=== PATIENT | female | born 1990 | race Hispanic/Latino ===

== ENCOUNTER → 2017-12-02 | Day surgery (SDC) | payer OTHER ==
[~2017-12-02] MED LIST: ACETAMINOPHEN 1000 MG/100 ML IV ONE; BUPIVACAINE 0.25% 30ML SDV INJ ONE; BUPROPION XL150 MG PO; CIPRO500 MG PO; DEXAMETHASONE SOD PHOS INJ 4 MG/ML VIAL ONE; FENTANYL CITRATE/PF 100MCG/2 ML INJ ONE; FLUOXETINE HCL10 MG PO; GLYCOPYRROLATE INJ 1MG/ 5 ML SYR ONE; LABETALOL HCL IV 5 MG/ML 20ML MDV ONE; LIDOCAINE HCL 2% LOCAL INJ 5 ML SDV VIAL INJ ONE; MIDAZOLAM HCL 2 MG/2 ML VIAL ONE; NEOSTIGMINE 5 MG/5ML SYR ONE; ONDANSETRON HCL INJ 2 MG/ML VIAL ONE; PROPOFOL IV EMULSION 10 MG/ML 20 ML VIAL ONE; QUETIAPINE FUM100 MG PO; ROCURONIUM BROMIDE 10 MG/ML 5ML VIAL ONE; SEVOFLURANE INHAL SOLN 250 ML PEN BTL ONE
--- OUTSIDE RECORDS SUMMARY | 2017-12-02 05:45 | XMS REPORT | Summary of Care ---
Author Author YOLANDE WILKERSON N.P. Organization Unknown Address Unknown Phone Unavailable Care Team Providers Care Day Light Relief Operator Name Role Phone YOLANDE WILKERSON N.P. Unavailable Unavailable LISET CARL DO Unavailable Unavailable Unavailable Unavailable Functional Status Name Dates Details Functional status health issues are not documented Status: Name Dates Details Cognitive status health issues are not documented Status: Problems Name Dates Details Alcohol use disorder (305.00, F10.99) Status: Active Pelvic cramping (625.9, R10.2) Status: Active Abnormal urine finding (791.9, R82.90) Status: Active Strep pharyngitis (034.0, J02.0) Status: Active Mood disorder (296.90, F39) Status: Active Alcohol dependence (303.90, F10.20) Status: Active Deliberate self-cutting (300.9, Z72.89) Status: Active Cocaine use disorder, moderate, in early remission (305.63, F14.21) Status: Active Borderline personality disorder (301.83, F60.3) Status: Active Bipolar disorder, current episode mixed, moderate (296.62, F31.62) Status: Active Inattention (799.51, R41.840) Status: Active MDD (major depressive disorder), severe (296.23, F32.2) Status: Active Medications Name Dates Details Depo-Provera SINTIA Active Naltrexone HCl - 50 MG Oral Tablet TAKE 1 TABLET ONCE DAILY. * Quantity: 30 Refills: 2 ELLIS-FOSTER N.P., YOLANDE * Start : 04-Apr-2017 Active QUEtiapine Fumarate 50 MG Oral Tablet TAKE 1 TABLET AT BEDTIME * Quantity: 60 Refills: 1 ELLIS-FOSTER N.P., YOLANDE * Start : 25-Aug-2017 Active FLUoxetine HCl - 20 MG Oral Capsule TAKE 2 CAPSULE DAILY * Quantity: 60 Refills: 2 ELLIS-FOSTER N.P., YOLANDE * Start : 02-Sep-2017 Active BuPROPion HCl ER (XL) 150 MG Oral Tablet Extended Release 24 Hour 1 tablet daily * Quantity: 30 Refills: 1 YOLANDE WILKERSON N.P. * Start : 23-Nov-2017 Active Allergies and Adverse Reactions Name Dates Details No Known Drug Allergies (Allergy) Status: Active Past Medical History Name Dates Details History of drug abuse (305.93, Z87.898) Status: Resolved History of suicide attempt (V11.8, Z91.5) Status: Resolved Procedures Procedure Dates Details History of breast augmentation Completed History of liposuction Completed Immunization Name Dates Details Immunizations not documented Family History Name Dates Details No pertinent family history Status: Active Name Dates Details No pertinent family history Status: Active Social History Name Dates Details - Status: Name Dates Details Former smoker Vital Signs Date Test Result Details [id number] BP Systolic 122 mm[Hg] Status: Comments: Location: LUE; Position: Sitting BP Diastolic 83 mm[Hg] Status: Comments: Location: LUE; Position: Sitting Height 62 in Status: Weight 120 lb Status: Body Mass Index Calculated 21.95 kg/m2 Status: Body Surface Area Calculated 1.54 m2 Status: Temperature 97.7 f Status: Comments: Method: Temporal Heart Rate 88 /min Status: Comments: Location: L Brachial Artery; Respiration Rate 16 /min Status: Comments: Quality: Normal [id number]-[id number] BP Systolic 113 mm[Hg] Status: Comments: Location: LUE; Position: Sitting BP Diastolic 75 mm[Hg] Status: Comments: Location: LUE; Position: Sitting Height 62 in Status: Weight 118 lb Status: Body Mass Index Calculated 21.58 kg/m2 Status: Body Surface Area Calculated 1.53 m2 Status: Temperature 98 f Status: Comments: Method: Temporal Heart Rate 86 /min Status: Comments: Location: L Brachial Artery; Respiration Rate 16 /min Status: Comments: Quality: Normal 31-Vnx-[id number]:14 BP Systolic 108 mm[Hg] Status: Comments: Location: LUE; Position: Sitting BP Diastolic 73 mm[Hg] Status: Comments: Location: LUE; Position: Sitting Height 62 in Status: Weight 121 lb Status: Body Mass Index Calculated 22.13 kg/m2 Status: Body Surface Area Calculated 1.54 m2 Status: Temperature 97.4 f Status: Comments: Method: Temporal Heart Rate 79 /min Status: Comments: Location: L Brachial Artery; Respiration Rate 16 /min Status: Comments: Quality: Normal Results Date Description Value Details Results not documented Plan of Care Name Dates Details Planned Observations Planned Goals not documented Interventions Provided Medication Changes* BuPROPion HCl ER (XL) 150 MG Oral Tablet Extended Release 24 Hour - Start Plan* Bipolar- continue with Quetiapine nightly. Return to clinic 1 month; sooner if needed * BPD- continue Fluoxetine, may consider weaning after starting Bupropion * Inattention- start Bupropion Instructions Name Dates Details Instructions not documented Encounters Appointment; MAYNOR MELCHOR M.D. Encounter Diagnosis: Problem not documented On: 04-Apr-2017 11:00 Appointment; MAYNOR MELCHOR M.D. Encounter Diagnosis: Problem not documented On: 04-May-2017 12:00 Appointment; SHAWN ADLER LCSW Encounter Diagnosis: Problem not documented On: 05-May-2017 11:00 Appointment; SHAWN ADLER LCSW Encounter Diagnosis: Problem not documented On: 20-May-2017 11:00 Appointment; YOLANDE WILKERSON NP Encounter Diagnosis: Problem not documented On: 25-Aug-2017 15:30 Appointment; YOLANDE WILKERSON NP Encounter Diagnosis: Problem not documented On: 02-Sep-2017 14:30 Appointment; YOLANDE WILKERSON NP Encounter Diagnosis: Problem not documented On: 23-Sep-2017 14:00 Appointment; YOLANDE WILKERSON NP Encounter Diagnosis: Problem not documented On: 19-Oct-2017 14:00 Appointment; YOLANDE WILKERSON NP Encounter Diagnosis: Problem not documented On: 09-Nov-2017 14:00 Appointment; YOLANDE WILKERSON NP Encounter Diagnosis: Problem not documented On: 18-Nov-2017 15:00 Appointment; YOLANDE WILKERSON NP Encounter Diagnosis: Problem not documented On: 23-Nov-2017 14:00
--- NOTE | 2017-12-02 12:37 | Operative Report ---
DATE OF PROCEDURE: December 02, 2017 PREOPERATIVE DIAGNOSES 1. Chronic adenotonsillitis. 2. Adenotonsillar hypertrophy. 3. Tonsilliths. POSTOPERATIVE DIAGNOSES 1. Chronic adenotonsillitis. 2. Adenotonsillar hypertrophy. 3. Tonsilliths. PROCEDURE: Tonsillectomy and adenoidectomy. SIGNIFICANT FINDINGS: Tonsils are 3+/3+ bilaterally and scarred. Adenoids moderately enlarged. Tonsilliths present. ANESTHESIA: General endotracheal tube anesthesia. SPECIMENS REMOVED: Tonsils (adenoids were coblated). ESTIMATED BLOOD LOSS: Less than 1 mL. COMPLICATIONS: None. INDICATIONS: The patient is a 26-year-old female with 6-year history of frequent throat infections occurring every 2 months. Each infection manifests as enlarged erythematous and exudative tonsils, sore throat, postnasal drip, fever, and enlarged tonsillar lymphadenopathy. She has been refractory to multiple courses of antibiotics. She also suffers from frequent tonsilliths which bother the patient. On examination, the tonsils are 2-3+/2-3+, cryptic and scarred. She is scheduled for tonsillectomy and adenoidectomy for the treatment of chronic adenotonsillitis, adenotonsillar hypertrophy and tonsilliths. Risks and complications of the procedures were thoroughly discussed with the patient and her mother, and they include infection, bleeding, scarring, failure to improve, need for additional operations, persistent infection, persistent tonsilliths, damage to teeth, gums, tongue, and lips, voice changes, chronic pain, numbness of the tongue and inability to taste, scarring of the pharynx resulting in permanent worse nasal obstruction, leakage of fluid through the nose when drinking liquids, damage to the eustachian tube orifices causing middle ear fluid and hearing loss, need for blood transfusions, damage to surrounding nerves, blood vessels and muscles. They fully understand and they give consent. PROCEDURE: The patient was taken to the operating room and placed supine on the operating table where general anesthesia was achieved through orotracheal intubation. Eyes were taped. Shoulder roll was placed. Head and body were draped. Table was turned 90 degrees with the head towards the surgeon. Ady-Ascencion mouth gag was inserted without difficulty, and placed in suspension on a Jackson stand. There was no evidence of bifid uvula, diastasis of the muscular uvulae, or a notched hard palate. Red rubber catheters were then inserted into the nose and brought out through the mouth to retract the soft palate. Examination of the nasopharynx with the laryngeal mirror revealed the adenoids to be moderately hypertrophied. Tonsils were 3+/3+ bilaterally. The left tonsil was grasped with a tonsillar Allis clamp, and was removed with the ArthroCare Coblator on a setting of 6 on cut mode taking care to stay right on the capsule of the tonsil. The right tonsil was removed in the same way. Both tonsils were cryptic containing tonsilliths. The tonsillar beds were scarred from previous infection. Hemostasis was obtained with the Coblator on a setting of 3 on coag mode. Following this, the adenoids were then removed with the ArthroCare Coblator on a setting of 8 on cut mode taking care to avoid trauma to the torus tubarius. Hemostasis was obtained with the Coblator on a setting of 3 on coag mode. Following this, injection with 3 mL of 0.25% plain Marcaine was injected into the free edges of the anterior and posterior tonsillar pillars. Thorough irrigation was then performed. Stomach contents were suctioned with an NG tube. Red rubber catheters and Ady-Ascencion mouth gag were then removed without difficulty revealing no trauma to the teeth, gum, tongue, and lips. The patient was awakened in the operating room, extubated and taken to the recovery room in good condition. Job#: [id number] KAYLAN GREGORIO
== END | disposition home or self-care (01) ==
LOC: OR 05:42
PROVIDERS: ATTEND Otolaryngology
DX: J35.03 Chronic tonsillitis and adenoiditis (principal); F32.9 Major depressive disorder, single episode, unspecified; F41.9 Anxiety disorder, unspecified; Z87.891 Personal history of nicotine dependence
CPT/HCPCS: 42821; 81025; 88304; J1100; J2001; J2250; J2405; J3490

== ENCOUNTER 2018-03-22 21:59 | Emergency (ER) | payer OTHER ==
[~2018-03-22] VITALS: Ht 157.5 cm; Wt 53.1 kg
[~2018-03-22 21:59] MED LIST changes: -ACETAMINOPHEN 1000 MG/100 ML IV ONE; -BUPIVACAINE 0.25% 30ML SDV INJ ONE; -DEXAMETHASONE SOD PHOS INJ 4 MG/ML VIAL ONE; -FENTANYL CITRATE/PF 100MCG/2 ML INJ ONE; -GLYCOPYRROLATE INJ 1MG/ 5 ML SYR ONE; -LABETALOL HCL IV 5 MG/ML 20ML MDV ONE; -LIDOCAINE HCL 2% LOCAL INJ 5 ML SDV VIAL INJ ONE; -MIDAZOLAM HCL 2 MG/2 ML VIAL ONE; -NEOSTIGMINE 5 MG/5ML SYR ONE; -ONDANSETRON HCL INJ 2 MG/ML VIAL ONE; -PROPOFOL IV EMULSION 10 MG/ML 20 ML VIAL ONE; -ROCURONIUM BROMIDE 10 MG/ML 5ML VIAL ONE; -SEVOFLURANE INHAL SOLN 250 ML PEN BTL ONE
--- OUTSIDE RECORDS SUMMARY | 2018-03-22 22:02 | XMS REPORT | Summary of Care ---
Author Author BARBARA MONTE LCSW Organization Unknown Address Unknown Phone Unavailable Care Team Providers Care Data Analytics Analyst Name Role Phone BARBARA MONTE LCSW Unavailable Unavailable ELLIS-FOSTER N.P., YOLANDE Unavailable Unavailable LISET CARL DO Unavailable Unavailable Unavailable Unavailable Functional Status Name Dates Details Functional status health issues are not documented Status: Name Dates Details Cognitive status health issues are not documented Status: Problems Name Dates Details Pelvic cramping (625.9, R10.2) Status: Active Abnormal urine finding (791.9, R82.90) Status: Active Strep pharyngitis (034.0, J02.0) Status: Active Alcohol dependence (303.90, F10.20) Status: Active Deliberate self-cutting (300.9, Z72.89) Status: Active Cocaine use disorder, moderate, in early remission (305.63, F14.21) Status: Active Inattention (799.51, R41.840) Status: Active MDD (major depressive disorder), severe (296.23, F32.2) Status: Active Bipolar disorder, current episode mixed, moderate (296.62, F31.62) Status: Active Well woman exam (V72.31, Z01.419) Status: Active Screening for STD (sexually transmitted disease) (V74.5, Z11.3) Status: Active Encounter for surveillance of injectable contraceptive (V25.49, Z30.42) Status: Active Enlarged ovary (620.8, N83.8) Status: Active Borderline personality disorder (301.83, F60.3) Status: Active Trauma in childhood (959.9, T14.90XA) Status: Active Alcohol use disorder (305.00, F10.99) Status: Active Mood disorder (296.90, F39) Status: Active Medications Name Dates Details Depo-Provera SINTIA Active Naltrexone HCl - 50 MG Oral Tablet TAKE 1 TABLET ONCE DAILY. * Quantity: 30 Refills: 2 ELLIS-FOSTER N.P., YOLANDE * Start : 19-Blake-2017 Active QUEtiapine Fumarate 50 MG Oral Tablet [...] tablet daily * Quantity: 30 Refills: 1 ELLIS-FOSTER N.P., YOLANDE * Start : 23-Nov-2017 Active Allergies and Adverse Reactions Name Dates Details No Known Drug Allergies (Allergy) Status: Active Past Medical History Name Dates Details History of drug abuse (305.93, Z87.898) Status: Resolved History of suicide attempt (V11.8, Z91.5) Status: Resolved Procedures Procedure Dates Details [COUNTS INCLUDE 234 BEDS AT THE [facility]] CULTURE, URINE, ROUTINE Date: 22-Dec-2017 History of Breast augmentation Completed History of Liposuction Completed Immunization Name Dates Details Immunizations not documented Family History Name Dates Details No pertinent family history Status: Active Name Dates Details No pertinent family history Status: Active Social History Name Dates Details - Status: Name Dates Details Former smoker Vital Signs Date Test Result Details No Known Vitals to report Results Date Description Value Details Results not documented Plan of Care Name Dates Details Planned Observations Planned Goals not documented Planned Encounters Appointment; BARBARA MONTE LCSW On: 06-Mar-2018 13:00 Interventions Provided Plan* Plan: SW and pt discussed urge surfing and limiting alcohol intake. SW and pt discussed several alternatives to drinking for pt to try. SW and pt will follow up at next session. Discussion/Summary* Progress made toward Goal mild progress . decrease in impulsive behaviors. * Additional notes and Recommendations. * Client will continue with counseling services. * Discussed the following with patient/family/other who verbally acknowledged and agrees to comply. Safety issues and Patient understands and will comply. Co- Morbidities. Predisposing symptoms. Precipating symptoms. Maintaining symptoms. Target symptoms. Side effects. Risks/benefits. follow-up 4 weeks Instructions Name Dates Details Instructions not documented Encounters Appointment; MAYNOR MELCHOR M.D. Encounter Diagnosis: Problem not documented On: 04-Apr-2017 11:00 Appointment; MAYNOR MELCHOR M.D. Encounter Diagnosis: Problem not documented On: 04-May-2017 12:00 Appointment; SHAWN ADLER LCSW Encounter Diagnosis: Problem not documented On: 05-May-2017 11:00 Appointment; SHAWN ADLER LCSW Encounter Diagnosis: Problem not documented On: 20-May-2017 11:00 Appointment; AVERY WILKERSONA, TESTING DIRECTOR Encounter Diagnosis: Problem not documented On: 25-Aug-2017 15:30 Appointment; AVERY WILKERSONA, TESTING DIRECTOR Encounter Diagnosis: Problem not documented On: 02-Sep-2017 14:30 Appointment; RHEA YOLANDE, TESTING DIRECTOR Encounter Diagnosis: Problem not documented On: 23-Sep-2017 14:00 Appointment; AVERY WILKERSONA, TESTING DIRECTOR Encounter Diagnosis: Problem not documented On: 19-Oct-2017 14:00 Appointment; RHEA YOLANDE, TESTING DIRECTOR Encounter Diagnosis: Problem not documented On: 09-Nov-2017 14:00 Appointment; AVERY WILKERSONA, TESTING DIRECTOR Encounter Diagnosis: Problem not documented On: 18-Nov-2017 15:00 Appointment; AVERY WILKERSONA, TESTING DIRECTOR Encounter Diagnosis: Problem not documented On: 23-Nov-2017 14:00 Appointment; AVERY WILKERSONA, TESTING DIRECTOR Encounter Diagnosis: Problem not documented On: 21-Dec-2017 15:00 Appointment; BARBARA MONTE LCSW Encounter Diagnosis: Problem not documented On: 21-Dec-2017 16:00 Appointment; BARBARA MONTE LCSW Encounter Diagnosis: Problem not documented On: 30-Jan-2018 13:00
== END 2018-03-23 01:48 | disposition home or self-care (01) ==
LOC: ER 21:59
DX: H60.92 Unspecified otitis externa, left ear (principal)
CPT/HCPCS: 99282

== ENCOUNTER 2020-04-15 11:50 | Emergency (ER) | payer OTHER ==
[~2020-04-15] VITALS: Ht 157.5 cm; Wt 56.7 kg
--- NOTE | 2020-04-15 12:48 | Diagnostic Imaging Report ---
EXAM: CXR 1 VIEW - [facility] DATE: 04/15/2020 12:40 PM INDICATION: Body aches, fatigue COMPARISON: None FINDINGS: The trachea is midline. The lungs are symmetrically expanded without evidence for large focal consolidation, pneumothorax, or significant pleural effusion. The cardiomediastinal silhouette and pulmonary vasculature are within normal limits. No acute osseous abnormality is identified. The surrounding soft tissues are unremarkable. IMPRESSION: No acute cardiopulmonary process identified. Signed by: Dr. Devon Sutherland MD on 04/15/2020 12:45 PM
--- NOTE | 2020-04-15 12:53 | Emergency Department Note ---
History of Present Illnes History of Present Illness Chief Complaint: COVID PUI History of Present Illness This is a 29 year old female Chief Complaint Comment Reports that she was on her way to work and became nauseated and vomited, and since yesterday she has had body aches with headache and some shortness of breath for the last 2 days and she works in a dental clinic. . Historian: Patient Arrival Mode: Car Onset (how long ago): day(s) (1) Location: vomting Quality: dull Radiation: Denies non-radiation, Denies back, Denies neck, Denies extremity, De nies abdomen, Denies periumbilical, Denies flank, Denies proximal, Denies distal, Denies other Severity: mild Onset quality: gradual Duration (how long): day(s) (1) Timing of current episode: intermittent Progression: waxing and waning Chronicity: new Context: Denies recent illness, Denies recent surgery, Denies recent immobilization, Denies recent travel, Denies trauma/injury, Denies new medications, Denies hx of DVT/PE, Denies non-compliance w/ medications, Denies other Relieving factors: none Exacerbating factors: none Associated symptoms: Reports shortness of breath Treatments prior to arrival: none Past Medical/Family History Physician Review I have reviewed the patient's past medical and family history. Any updates have been documented here. Past Medical History Recent Fever: No Clinical Suspicion of Infectio: No New/Unexplained Change in Ment: No Past Medical History: None Past Surgical History: T&A Other Surgery: Breast augmentation Liposuction Social History Smoking Cessation: Never Smoker Counseling Performed: No Alcohol Use: None Any Illegal Drug Use: No TB Exposure/Symptoms: No Physically hurt or threatened: No Family History Family history of heart diseas: No Other Last Tetanus: Unknown Any Pre-Existing Lines (PICC,: No Is patient up to date on immun: Yes Last Flu: none Last Pneumovax: none Review of Systems Review of Systems Constitutional: Reports no symptoms EENTM: Reports no symptoms Cardiovascular: Reports no symptoms Respiratory: Reports as per HPI Gastrointestinal: Reports as per HPI Genitourinary: Reports no symptoms Musculoskeletal: Reports no symptoms Integumentary: Reports no symptoms Neurological: Reports no symptoms Psychological: Reports no symptoms Endocrine: Reports no symptoms Hematological/Lymphatic: Reports no symptoms Physical Exam Related Data Allergies: Coded Allergies: No Known Allergies (Unverified , 06/23/16) Triage Vital Signs Vital Signs Date Time Temp Pulse Resp B/P (MAP) Pulse Ox O2 Delivery O2 Flow Rate FiO2 04/15/20 11:57 99.0 77 18 141/94 100 Vital signs reviewed: Yes Physical Exam CONSTITUTIONAL Constitutional: Present well-developed, Present well-nourished HENT HENT: Present normocephalic, Present atraumatic, Present oropharynx clear /moist, Present nose normal HENT L/R: Present left ext ear normal, Present right ext ear normal EYES Eyes: Reports PERRL, Reports conjunctivae normal NECK Neck: Present ROM normal PULMONARY Pulmonary: Present effort normal, Present breath sounds normal CARDIOVASCULAR Cardiovascular: Present regular rhythm, Present heart sounds normal, Present capillary refill normal, Present normal rate GASTROINTESTINAL Abdominal: Present soft, Present nontender, Present bowel sounds normal GENITOURINARY Genitourinary: Present exam deferred SKIN Skin: Present warm, Present dry MUSCULOSKELETAL Musculoskeletal: Present ROM normal NEUROLOGICAL Neurological: Present alert, Present oriented x 3, Present no gross motor or sensory deficits PSYCHOLOGICAL Psychological: Present mood/affect normal, Present judgement normal Results Imaging Imaging results reviewed: Yes Assessment & Plan Medical Decision Making MDM gastritis covid Reassessment Reassessment time: 12:52 Reassessment better Assessment & Plan Final Impression: (1) Vomiting (2) Headache (3) Dyspnea Depart Disposition: HOME, SELF-CARE Last Vital Signs Date Time Temp Pulse Resp B/P (MAP) Pulse Ox O2 Delivery O2 Flow Rate FiO2 04/15/20 11:57 99.0 77 18 141/94 100 Home Meds Reported Medications Bupropion Hcl (BUPROPION XL) 150 Mg Tab.er.24h, 150 MG PO DAILY 11/30/17 Quetiapine Fumarate (QUETIAPINE FUMARATE) 100 Mg Tablet, 100 MG PO DAILY, #30 TAB 11/30/17 Fluoxetine Hcl (FLUOXETINE HCL) 10 Mg Capsule, 10 MG PO DAILY, #30 CAP 11/30/17 JORGE BROWN MD Apr 15, 2020 12:53
== END 2020-04-15 13:09 | disposition home or self-care (01) ==
LOC: FSED 12:49
DX: R06.00 Dyspnea, unspecified (principal); R11.2 Nausea with vomiting, unspecified; R51 Headache; Z11.59 Encounter for screening for other viral diseases
CPT/HCPCS: 71045; 87635; 99283